=== PATIENT | male | born 1955 | race Asian ===

== ENCOUNTER 2019-07-10 08:16 | Emergency (ER) | payer MEDICARE ==
[~2019-07-10] VITALS: Ht 165.1 cm; Wt 69.4 kg
--- NOTE | 2019-07-10 08:40 | NUR ---
[facility] TO ER, THE FACILITY CALLED 911 - THE PATIENT FELL OFF THE CHAIR; HYPOXIA REPORTED BY THE STAFF
--- NOTE | 2019-07-10 08:41 | NUR ---
IV LINE STARTED; SEPTIC WORK UP SENT TO LAB
[2019-07-10] MEDS: IV NS 0.9% 1,000 ML BAG IV ONE (08:42)
--- NOTE | 2019-07-10 08:47 | NUR ---
IVF FLUIDS GIVEN ORDERED
[2019-07-10 08:48] LABS: BASOPHILS # (AUTO) 0.1 /CMM (0.0-0.2); BASOPHILS % (AUTO) 1.3 % (0.0-2.0); EOSINOPHILS % (AUTO) 0.7 % (0.0-6.0); HEMATOCRIT 42 % (39-51); HEMOGLOBIN 14.3 g/dL (13.5-17.5); LYMPHOCYTES # (AUTO) 1.7 /CMM (0.8-4.8); LYMPHOCYTES % (AUTO) 17.9 % (20.0-44.0); MEAN CORPUSCULAR HGB CONC 34 g/dl (31.0-36.0); MEAN CORPUSCULAR VOLUME 91 fL (80-96); MONOCYTES # (AUTO) 0.5 /CMM (0.1-1.30); NEUTROPHILS # (AUTO) 7.3 /CMM (1.8-8.9); NEUTROPHILS % (AUTO) 75.1 % (43.0-81.0); PLATELET COUNT (AUTO) 389 /CMM (150-450); RED BLOOD CELL COUNT(AUTO) 4.68 MIL/uL (4.5-6.0); WHITE BLOOD COUNT (AUTO) 9.7 K/uL (4.3-11.0)
[2019-07-10 08:53] LABS: CALCIUM, SERUM 9.6 mg/dL (8.5-10.1); CARBON DIOXIDE 26 mmol/L (21-32); CHLORIDE 103 mmol/L (98-107); CREATININE 1.1 mg/dL (0.6-1.3); GLUCOSE 154 mg/dL (74-106); POTASSIUM 4.6 mmol/L (3.5-5.1); SODIUM SERUM 141 mmol/L (136-145); UREA NITROGEN, BLOOD 20 mg/dL (7-18)
[2019-07-10 08:59] LABS: ALANINE AMINOTRANSFERASE 19 U/L (12-78); ALBUMIN 3.7 g/dL (3.4-5.0); ALKALINE PHOSPHATASE 86 U/L (46-116); ASPARTATE AMINOTRANSFERASE 17 U/L (15-37); BILIRUBIN,DIRECT 0.1 mg/dL (0.0-0.2); BILIRUBIN,TOTAL 0.4 mg/dL (0.2-1.0); TOTAL PROTEIN, SERUM 7.7 g/dL (6.4-8.2)
[2019-07-10] MEDS ORDERED: PARO10TA86 PO (09:07)
[2019-07-10] MEDS ORDERED: ACET-2605 PO (09:07)
[2019-07-10] MEDS ORDERED: SIMV-46 PO (09:07)
[2019-07-10] MEDS ORDERED: ZIPR80CA2 PO (09:07)
[2019-07-10] MEDS ORDERED: MAGN400O6 PO (09:07)
[2019-07-10] MEDS ORDERED: ACET-868 PO (09:07)
[2019-07-10] MEDS ORDERED: LISI-658 PO (09:07)
[2019-07-10] MEDS ORDERED: LORA-259 PO (09:07)
[2019-07-10] MEDS ORDERED: CALC500T13 PO (09:07)
[2019-07-10] MEDS ORDERED: NA P133E RC (09:07)
[2019-07-10] MEDS ORDERED: BISA10SU11 RC (09:07)
[2019-07-10] MEDS ORDERED: METO25TA20 PO (09:07)
[2019-07-10 09:09] LABS: APPEARANCE,URINE Clear (CLEAR); BILIRUBIN,URINE Negative (NEGATIVE); BLOOD, URINE Negative Ery/uL (NEGATIVE); COLOR,URINE Yellow (YELLOW); KETONES,URINE Negative (NEGATIVE); LEUKOCYTE ESTERASE ,URINE Negative (NEGATIVE); NITRITE, URINE Negative (NEGATIVE); PH,URINE 8.5 (5.0-8.0); PROTEIN,URINE Negative (NEGATIVE); UGLUCOSE Negative (NEGATIVE); UROBILINOGEN,URINE 0.2 EU/dL (0.2)
--- NOTE | 2019-07-10 10:13 | NUR ---
CALLED [facility] FOR TRANSPORT TO [facility]. ETA 15 MINUTES.
[2019-07-10] MEDS ORDERED: LORAZEPAM 1 MG TABLET ONE (10:26)
[2019-07-10] MEDS: LORAZEPAM 1 MG TABLET PO ONE (10:32)
[2019-07-10 10:40] LABS: LYMPHOCYTES % (MANUAL) 14 % (16-48); MONOCYTES % (MANUAL) 6 % (0-11.0); NEUTROPHILS % (MANUAL) 80 (42-76)
--- NOTE | 2019-07-10 10:45 | NUR ---
PT TRANSPORTED BACK TO [facility]. STABLE CONDITION.
[2019-07-10 11:37] VITALS: BP 138/84
== END 2019-07-10 10:45 | disposition home or self-care (01) ==
LOC: ER 08:21
DX: R06.02 Shortness of breath (principal); I10 Essential (primary) hypertension; E11.9 Type 2 diabetes mellitus without complications; R53.1 Weakness; J45.909 Unspecified asthma, uncomplicated; E78.5 Hyperlipidemia, unspecified; Z86.73 Personal history of transient ischemic attack (TIA), and cerebral infarction without residual deficits; Z88.6 Allergy status to analgesic agent; Z88.5 Allergy status to narcotic agent; Z79.899 Other long term (current) drug therapy
CPT/HCPCS: 36415; 71045; 80048; 80076; 81001; 84484; 85025; 93005; 99284; J7030; 81000-TC